=== PATIENT | female | born 1955 | race Caucasian/White ===

== ENCOUNTER 2022-05-15 16:18 | Outpatient (REF) | payer SELFPAY ==
[2022-05-17 12:40] LABS: COVID-19 RT-PCR UVMMC Result Negative (Negative)
== END 2022-05-15 16:19 | disposition home or self-care (01) ==
LOC: LBN 16:18
PROVIDERS: Visit Provider Physician Assistant Medical
DX: Z20.822 Contact with and (suspected) exposure to COVID-19 (principal); J34.89 Other specified disorders of nose and nasal sinuses
CPT/HCPCS: U0003